=== PATIENT | male | born 1965 | race Caucasian/White ===

== ENCOUNTER 2016-10-19 20:51 | Emergency (ER) | payer OTHER ==
[~2016-10-19] VITALS: Ht 172.7 cm; Wt 105.2 kg
[2016-10-19 20:53] VITALS: Ht 172.7 cm; Wt 105.2 kg
[2016-10-19 22:24] LABS: ADD SCAN DIFF NO
--- NOTE | 2016-10-19 22:25 | RADRPT ---
PROCEDURE: XR Chest. CLINICAL INDICATION: Chest pain TECHNIQUE: A single portable view of the chest was obtained. COMPARISON: None FINDINGS: The cardiomediastinal silhouette is within normal limits. The lung volumes are low with bibasilar co mpressive atelectasis. The lungs and pleural spaces are clear. The soft tissues and osseous structu res are unremarkable. IMPRESSION: No acute cardiopulmonary disease. Low lung volumes with bibasilar compressive atelectasis. RPTAT: HPNM Physician Marc Date Time Electronically viewed and signed by Mina Lazo Physician on 10/19/2016 22:24 /
[2016-10-19 22:26] LABS: BASOPHILS % 0.4 % (0.0-2.0); EOSINOPHILS # 0.2 10^3/ul (0.0-0.5); HEMATOCRIT 49.8 % (42.0-52.0); HEMOGLOBIN 16.7 g/dl (14.0-18.0); LYMPHOCYTES # 2.9 10^3/ul (0.8-2.9); LYMPHOCYTES % 38.7 % (15.0-51.0); MEAN CORPUSCULAR HEMOGLOBIN 28.8 pg (29.0-33.0); MEAN CORPUSCULAR HGB CONC 33.5 g/dl (32.0-37.0); MEAN PLATELET VOLUME 11.4 fl (7.4-10.4); MONOCYTE # 0.8 10^3/ul (0.3-0.9); MONOCYTES % 10.3 % (0.0-11.0); NEUTROPHIL # 3.6 10^3/ul (1.6-7.5); NEUTROPHILS % 47.5 % (39.0-77.0); PLATELET COUNT 195 10^3/UL (140-415); RED BLOOD COUNT 5.79 10^6/ul (4.70-6.10); WHITE BLOOD COUNT 7.6 10^3/ul (4.8-10.8)
[2016-10-19 22:36] LABS: ALBUMIN 4.7 g/dl (3.3-4.9)
[2016-10-19 22:37] LABS: CHLORIDE 99 mmol/L (97-110); POTASSIUM 4.1 mmol/L (3.5-5.1); SODIUM 143 mmol/L (135-144)
[2016-10-19 22:39] LABS: ANION GAP 18 (8-16); ASPARTATE AMINO TRANSFERASE 72 IU/L (15-46); BILIRUBIN,INDIRECT 0.5 mg/dl (0-1.1); BILIRUBIN,TOTAL 0.5 mg/dl (0.2-1.3); CARBON DIOXIDE 30 mmol/L (21-31); CREATININE 0.96 mg/dl (0.61-1.24); TOTAL PROTEIN 8.3 g/dl (6.1-8.1)
[2016-10-19 22:40] LABS: ALANINE AMINOTRANSFERASE 126 IU/L (13-69); ALKALINE PHOSPHATASE 79 IU/L (42-121); BLOOD UREA NITROGEN 13 mg/dl (7-20); CALCIUM 9.8 mg/dl (8.4-10.2); GLUCOSE 102 mg/dl (70-220)
[2016-10-19 22:55] LABS: TROPONIN-I < 0.012 ng/ml (0.00-0.12)
[2016-10-19] MEDS ORDERED: NITROGLYCERIN 2% 1 GM OINT PKT TD STA (23:48)
[2016-10-19] MEDS ORDERED: ASPIRIN 325 MG TAB PO STA (23:48)
[2016-10-20] MEDS ORDERED: ZOLPIDEM 5 MG TAB PO PRN
[2016-10-20] MEDS ORDERED: FAMOTIDINE 20 MG TAB PO SCH
[2016-10-20] MEDS ORDERED: NACL 0.9% 3 ML SYG IV SCH
[2016-10-20] MEDS ORDERED: DOCUSATE SODIUM 100 MG CAP PO PRN
[2016-10-20] MEDS ORDERED: ONDANSETRON 4 MG TAB PO PRN
[2016-10-20 00:39] VITALS: TEMP 98.4
--- NOTE | 2016-10-20 00:57 | ERA ---
ER Documentation Chief Complaint Date/Time DATE: 10/20/16 TIME: 00:54 Chief Complaint Pt with intermittent sharp CP since 1500, last for 3 or 4 sec. HPI This is a very pleasant patient comes with intermittent sharp chest pain since 1500. lasts 3-4 seconds. No nausea no vomiting no chills. Mild to moderate intensity. No other current complaints. Pain is mild to moderate intensity ROS All systems reviewed and are negative except as per history of present illness. Allergies Allergies: Coded Allergies: No Known Allergy (Unverified , 10/19/16) PMhx/Soc Medical and Surgical Hx: pt denies Medical Hx History of Surgery: Yes (left appendage ambutation from accident) Anesthesia Reaction: No Hx Neurological Disorder: No Hx Respiratory Disorders: No Hx Cardiac Disorders: Yes (high cholesterol) Hx Psychiatric Problems: No Hx Alcohol Use: No Hx Substance Use: No Hx Tobacco Use: No Smoking Status: Never smoker Physical Exam Vitals Vital Signs Date Time Temp Pulse Resp B/P Pulse Ox O2 Delivery O2 Flow Rate FiO2 10/20/16 00:39 98.4 71 20 123/83 98 Room Air 10/19/16 23:41 66 17 126/82 100 Room Air 10/19/16 22:09 80 17 124/89 100 Room Air 10/19/16 20:53 96.7 82 20 148/88 99 Physical Exam Const: [] Head: Atraumatic Eyes: Normal Conjunctiva ENT: Normal External Ears, Nose and Mouth. Neck: Full range of motion..~ No meningismus. Resp: Clear to auscultation bilaterally Cardio: Regular rate and rhythm, no murmurs Abd: Soft, non tender, non distended. Normal bowel sounds Skin: No petechiae or rashes Back: No midline or flank tenderness Ext: No cyanosis, or edema Neur: Awake and alert Psych: Normal Mood and Affect Result Diagram: 10/19/16220910/19/162209 Results 24 hrs Laboratory Tests Test 10/19/16 22:10 Alanine Aminotransferase (ALT/SGPT) 126IU/L Albumin 4.7g/dl Albumin/Globulin Ratio 1.30 Alkaline Phosphatase 79IU/L Anion Gap 18 Aspartate Amino Transf (AST/SGOT) 72IU/L Basophils # 0.010^3/ul Basophils % 0.4% Blood Urea Nitrogen 13mg/dl Calcium Level 9.8mg/dl Carbon Dioxide Level 30mmol/L Chloride Level 99mmol/L Creatinine 0.96mg/dl Direct Bilirubin 0.00mg/dl Eosinophils # 0.210^3/ul Eosinophils % 3.0% Globulin 3.60g/dl Glucose Level 102mg/dl Hematocrit 49.8% Hemoglobin 16.7g/dl Indirect Bilirubin 0.5mg/dl Lipase 359U/L Lymphocytes # 2.910^3/ul Lymphocytes % 38.7% Mean Corpuscular Hemoglobin 28.8pg Mean Corpuscular Hemoglobin Concent 33.5g/dl Mean Corpuscular Volume 86.0fl Mean Platelet Volume 11.4fl Monocytes # 0.810^3/ul Monocytes % 10.3% Neutrophils # 3.610^3/ul Neutrophils % 47.5% Nucleated Red Blood Cells # 0.010^3/ul Nucleated Red Blood Cells % 0.0/100WBC Platelet Count 39881^3/UL Potassium Level 4.1mmol/L Red Blood Count 5.7910^6/ul Red Cell Distribution Width 12.0% Sodium Level 143mmol/L Total Bilirubin 0.5mg/dl Total Protein 8.3g/dl Troponin I < 0.012ng/ml White Blood Count 7.610^3/ul Current Medications Medications (Trade) Dose Ordered Sig/Yokasta Route PRN Reason Start Time Stop Time Status Last Admin Dose Admin Aspirin (Aspirin) 325 mg ONCE STAT PO 10/19/16 23:48 10/19/16 23:55 DC 10/20/16 00:22 Nitroglycerin (Nitroglycerin 2% Oint) 1 inch ONCE STAT TD 10/19/16 23:48 10/19/16 23:55 DC 10/20/16 00:22 IV Flush (NS 3 ml) 3 ml PER PROTOCOL IV 10/20/16 00:00 Ondansetron HCl (Zofran Tab) 4 mg Q6H PRN PO NAUSEA AND/OR VOMITING 10/20/16 00:00 Zolpidem Tartrate (Ambien) 5 mg QHS PRN PO INSOMNIA 10/20/16 00:00 Docusate Sodium (Colace) 100 mg Q12H PRN PO CONSTIPATION 10/20/16 00:00 Famotidine (Pepcid) 20 mg Q12 PO 10/20/16 00:00 Enoxaparin Sodium (Lovenox) 40 mg DAILY SC 10/20/16 09:00 Procedures/MDM EKG: Rate/Rhythm: [Normal Sinus Rhythm] QRS, ST, T-waves: [No changes consistent w/ acute ischemia] Impression: [No evidence of ischemia or arrhythmia] Chest X-ray 1V Interpreted by me: Soft Tissue: No acute abnormalities Bones: No acute abnormalities Mediastinum/Cardiac Silhouette/Lungs: [No acute abnormalities] Patient's symptoms are concerning for cardiac cause will require inpatient workup and continuous monitoring. Further w/u for ischemia, arrhythmia, PE or dissection will be deferred to the inpatient team. Accepting Care Team: Current data and ongoing care discussed. Time: 11 PM Primary Provider: jackeline Consulting: [XOXOXO] Outstanding Data: none Departure Diagnosis: Primary Impression: Chest pain Qualified Code: I20.9 - Ischemic chest pain Condition: Stable ANNIE BASILIO Oct 20, 2016 00:57
[2016-10-20 02:29] VITALS: BP 116/55; PULSE 78; RESP 17
[2016-10-20] MEDS ORDERED: ENOXAPARIN 40 MG/0.4 ML SYG SC SCH (09:00)
== END 2016-10-20 02:33 | disposition left against medical advice (07) ==
LOC: E/R 20:51
DX: I20.9 Angina pectoris, unspecified (principal)
CPT/HCPCS: 36415; 71010; 80053; 83690; 84484; 85025; Z7502; Z7610

== ENCOUNTER 2016-10-20 10:01 | Emergency (ER) | payer OTHER ==
[~2016-10-20] VITALS: Wt 103.0 kg
[2016-10-20] MEDS ORDERED: ASPIRIN 81 MG TAB PO STA (10:17)
[2016-10-20] MEDS ORDERED: NITROGLYCERIN 2% 1 GM OINT PKT TD STA (10:17)
[2016-10-20] MEDS ORDERED: NITROGLYCERIN (SL) 0.4 MG TAB SL PRN (10:30)
--- NOTE | 2016-10-20 13:37 | ERD ---
ER Documentation Chief Complaint Date/Time DATE: 10/20/16 TIME: 13:36 Chief Complaint CHEST PAIN SINCE LAST NIGHT. LEFT AMA LAST NIGHT IN ER. HERE FOR SAME HPI Patient is a 51-year-old male who presents with chest pain. The patient was seen last night for the same. He had a full workup and was going to be admitted but left AGAINST MEDICAL ADVICE. He said that he was told to come back for a stress test today. He denies any pain today. Upon review of old medical records this is the patient's second visit in 2 days. ROS All systems reviewed and are negative except as per history of present illness. Allergies Allergies: Coded Allergies: No Known Allergy (Unverified , 10/19/16) PMhx/Soc History of Surgery: Yes (left appendage ambutation from accident) Anesthesia Reaction: No Hx Neurological Disorder: No Hx Respiratory Disorders: No Hx Cardiac Disorders: Yes (high cholesterol) Hx Psychiatric Problems: No Hx Miscellaneous Medical Probl: No Hx Alcohol Use: No Hx Substance Use: No Hx Tobacco Use: No Smoking Status: Never smoker FmHx Family History: No diabetes Physical Exam Vitals Vital Signs Date Time Temp Pulse Resp B/P Pulse Ox O2 Delivery O2 Flow Rate FiO2 10/20/16 10:05 98.7 84 20 132/85 98 Physical Exam Const: No acute distress Head: Atraumatic Eyes: Normal Conjunctiva ENT: Normal External Ears, Nose and Mouth. Neck: Full range of motion..~ No meningismus. Resp: Clear to auscultation bilaterally Cardio: Regular rate and rhythm, no murmurs Abd: Soft, non tender, non distended. Normal bowel sounds Skin: No petechiae or rashes Back: No midline or flank tenderness Ext: No cyanosis, or edema Neur: Awake and alert Psych: Normal Mood and Affect Results 24 hrs Current Medications Medications (Trade) Dose Ordered Sig/Yokasta Route PRN Reason Start Time Stop Time Status Last Admin Dose Admin Aspirin (Aspirin) 162 mg ONCE STAT PO 10/20/16 10:17 10/20/16 10:31 DC Nitroglycerin (Nitroglycerin 2% Oint) 1 inch ONCE STAT TD 10/20/16 10:17 10/20/16 10:31 DC Nitroglycerin (Nitroglycerin (Sl Tab) 0.4 Mg) 1 tab Q5M UP TO 3 DOSES PRN SL CHEST PAIN 10/20/16 10:30 10/20/16 10:31 DC Procedures/MDM EKG read by me: Rate/Rhythm: Regular rate and rhythm at a normal rate Intervals: Normal Impression: No evidence of ischemia or arrhythmia Patient is a 51-year-old male presents with chest pain. He has no chest pain here in the emergency department. His EKG is normal. The plan was to do a full workup and admit him to the hospital however he is refusing this plan and wants to leave AGAINST MEDICAL ADVICE. He thought that he would get a stress test in the emergency department today but I told him that we do not do stress test from the emergency department and that he would need to be admitted to have this done. He does not want to stay for the workup. He can follow-up with his primary doctor and have an outpatient stress test scheduled. He could return for any worsening symptoms. Departure Diagnosis: Primary Impression: Chest pain Chest pain type: unspecified Qualified Code: R07.9 - Chest pain, unspecified type Condition: Fair Patient Instructions: Chest Pain, Uncertain Cause Referrals: DIANN EL (PCP) Additional Instructions: Call your primary care doctor TOMORROW for an appointment during the next 1-2 days.See the doctor sooner or return here if your condition worsens before your appointment time. DALTON ANTONY MD Oct 20, 2016 13:37
== END 2016-10-20 10:42 | disposition home or self-care (01) ==
LOC: E/R 10:01
DX: R07.9 Chest pain, unspecified (principal)
CPT/HCPCS: 93005; Z7502